=== PATIENT | female | born 1950 | race Caucasian/White ===

== ENCOUNTER 2016-07-21 22:10 | Inpatient (IN) | payer MEDICARE, SELFPAY ==
[~2016-07-21 22:10] MED LIST: FLEXERIL10 MG PO; IBUPROFEN200 MG PO
[2016-07-21 23:09] LABS: BASO % 0.2 % (0-2); EOS % 3.5 % (0-7); EOSINOPHIL ABSOLUTE COUNT 0.2 tho/cmm (0.0-0.7); HCT-HEMATOCRIT 27.7 % (34.0-49.0); HGB-HEMOGLOBIN 9.1 gm/dl (12.0-15.5); IMMATURE GRANULOCYTES ABSOLUTE 0.03 tho/cmm (0-0.03); IMMATURE GRANULOCYTES PERCENT 0.5 % (0-0.3); LYMPH % 36.3 % (20-45); LYMPH ABSOLUTE COUNT 2.4 tho/cmm (0.8-4.5); MCH (MEAN CORPUSCULAR HGB) 28.7 pg (28.0-32.0); MCHC MEAN CORPUSCULAR HGB CONC 32.9 % (32.0-36.0); MCV (MEAN CELL VOLUME) 87.4 fl (82.0-96.0); MEAN PLATELET VOLUME 9.9 cmc (9.4-12.4); MONO % 5.7 % (0-12); MONOCYTE ABSOLUTE COUNT 0.4 tho/cmm (0.0-1.2); NEUTROPHIL ABSOLUTE COUNT 3.6 tho/cmm (1.6-8.0); NEUTROPHIL-AUTOMATED 3.6 tho/cmm (1.6-8.0); NEUTROPHILS % 53.8 % (40-80); PLATELET COUNT 225 tho/cmm (150-450); RED BLOOD COUNT 3.17 mil/cmm (4.00-5.20); RED CELL DISTRIBUTION WIDTH 13.6 % (12.4-16.4); WHITE BLOOD COUNT 6.6 tho/cmm (4.0-10.0)
[2016-07-21 23:22] LABS: INR 0.9 INR (0.9-1.1); PROTHROMBIN TIME 10.1 SECONDS (9.0-13.6)
[2016-07-21 23:31] LABS: ALB/GLOB RATIO 1.2 (0.8-2.0); ALBUMIN 3.6 g/dl (3.5-5.0); ALKALINE PHOSPHATASE 49 U/L (33-138); ALT/SGPT 29 U/L (12-78); ANION GAP 15 mmol/L (0-20); AST/SGOT 22 U/L (10-40); BILIRUBIN,TOTAL 0.2 mg/dl (0-1.5); BLOOD UREA NITROGEN 26 mg/dl (6-24); CALCIUM 8.6 mg/dl (8.5-10.5); CARBON DIOXIDE-VENOUS 23 mmol/L (22-32); CHLORIDE 108 mmol/l (96-110); CREATININE 0.84 mg/dl (0.50-1.10); GLUCOSE 101 mg/dL (70-110); POTASSIUM 3.7 mmol/L (3.7-5.1); SODIUM 142 mmol/L (135-145); eGFR VALUE FOR BLACK 83 mL/Min
[2016-07-22 00:38] LABS: URINE APPEARANCE HAZY; URINE BILIRUBIN NEGATIVE (NEG); URINE BLOOD LARGE (NEG); URINE COLOR YELLOW; URINE GLUCOSE (UA) NEGATIVE (NEG); URINE KETONE NEGATIVE (NEG); URINE LEUKOCYTE ESTERASE POSITIVE (NEG); URINE NITRITE NEGATIVE (NEG); URINE PROTEIN NEGATIVE (NEG); URINE SPECIFIC GRAVITY 1.025 (1.003-1.030)
[2016-07-22 00:50] LABS: URINE BACTERIA 1+; URINE MUCUS 1+; URINE RBC 0-3 /[HPF] (0-5)
[2016-07-22 05:45] LABS: BASO % 0.2 % (0-2); EOS % 2.4 % (0-7); EOSINOPHIL ABSOLUTE COUNT 0.1 tho/cmm (0.0-0.7); HCT-HEMATOCRIT 24.5 % (34.0-49.0); HGB-HEMOGLOBIN 8.1 gm/dl (12.0-15.5); IMMATURE GRANULOCYTES ABSOLUTE 0.01 tho/cmm (0-0.03); IMMATURE GRANULOCYTES PERCENT 0.2 % (0-0.3); LYMPH % 29.4 % (20-45); LYMPH ABSOLUTE COUNT 1.5 tho/cmm (0.8-4.5); MCH (MEAN CORPUSCULAR HGB) 28.9 pg (28.0-32.0); MCHC MEAN CORPUSCULAR HGB CONC 33.1 % (32.0-36.0); MCV (MEAN CELL VOLUME) 87.5 fl (82.0-96.0); MEAN PLATELET VOLUME 9.3 cmc (9.4-12.4); MONO % 5.6 % (0-12); MONOCYTE ABSOLUTE COUNT 0.3 tho/cmm (0.0-1.2); NEUTROPHIL ABSOLUTE COUNT 3.1 tho/cmm (1.6-8.0); NEUTROPHIL-AUTOMATED 3.1 tho/cmm (1.6-8.0); NEUTROPHILS % 62.2 % (40-80); PLATELET COUNT 174 tho/cmm (150-450); RED CELL DISTRIBUTION WIDTH 13.6 % (12.4-16.4)
[2016-07-22 05:55] LABS: ANION GAP 12 mmol/L (0-20); BLOOD UREA NITROGEN 19 mg/dl (6-24); CALCIUM 7.5 mg/dl (8.5-10.5); CARBON DIOXIDE-VENOUS 23 mmol/L (22-32); CHLORIDE 111 mmol/l (96-110); CREATININE 0.72 mg/dl (0.50-1.10); GLUCOSE 109 mg/dL (70-110); MAGNESIUM 1.9 mg/dl (1.8-2.6); POTASSIUM 3.6 mmol/L (3.7-5.1); SODIUM 142 mmol/L (135-145); eGFR VALUE FOR BLACK >90 mL/Min
[2016-07-22 11:01] LABS: HCT-HEMATOCRIT 29.2 % (34.0-49.0); HGB-HEMOGLOBIN 9.8 gm/dl (12.0-15.5); MCV (MEAN CELL VOLUME) 86.6 fl (82.0-96.0); RED CELL DISTRIBUTION WIDTH 13.4 % (12.4-16.4)
[2016-07-22 19:11] LABS: HCT-HEMATOCRIT 30.7 % (34.0-49.0); HGB-HEMOGLOBIN 10.4 gm/dl (12.0-15.5); MCV (MEAN CELL VOLUME) 86.2 fl (82.0-96.0); RED CELL DISTRIBUTION WIDTH 13.3 % (12.4-16.4)
[2016-07-23 03:38] LABS: HCT-HEMATOCRIT 28.2 % (34.0-49.0); HGB-HEMOGLOBIN 9.5 gm/dl (12.0-15.5); MCV (MEAN CELL VOLUME) 86.5 fl (82.0-96.0); RED CELL DISTRIBUTION WIDTH 13.4 % (12.4-16.4)
[2016-07-23 11:25] LABS: HCT-HEMATOCRIT 30.1 % (34.0-49.0); MCV (MEAN CELL VOLUME) 87.2 fl (82.0-96.0); RED CELL DISTRIBUTION WIDTH 13.8 % (12.4-16.4)
[2016-07-24 05:01] LABS: BASO % 0.1 % (0-2); EOS % 1.2 % (0-7); EOSINOPHIL ABSOLUTE COUNT 0.1 tho/cmm (0.0-0.7); HCT-HEMATOCRIT 29.1 % (34.0-49.0); HGB-HEMOGLOBIN 9.7 gm/dl (12.0-15.5); IMMATURE GRANULOCYTES ABSOLUTE 0.02 tho/cmm (0-0.03); IMMATURE GRANULOCYTES PERCENT 0.3 % (0-0.3); LYMPH % 27.9 % (20-45); LYMPH ABSOLUTE COUNT 1.9 tho/cmm (0.8-4.5); MCHC MEAN CORPUSCULAR HGB CONC 33.3 % (32.0-36.0); MCV (MEAN CELL VOLUME) 87.1 fl (82.0-96.0); MEAN PLATELET VOLUME 9.5 cmc (9.4-12.4); MONO % 7.8 % (0-12); MONOCYTE ABSOLUTE COUNT 0.5 tho/cmm (0.0-1.2); NEUTROPHIL ABSOLUTE COUNT 4.2 tho/cmm (1.6-8.0); NEUTROPHIL-AUTOMATED 4.2 tho/cmm (1.6-8.0); NEUTROPHILS % 62.7 % (40-80); PLATELET COUNT 174 tho/cmm (150-450); RED BLOOD COUNT 3.34 mil/cmm (4.00-5.20); RED CELL DISTRIBUTION WIDTH 13.7 % (12.4-16.4); WHITE BLOOD COUNT 6.7 tho/cmm (4.0-10.0)
[2016-07-24 05:21] LABS: ANION GAP 14 mmol/L (0-20); BLOOD UREA NITROGEN 6 mg/dl (6-24); CARBON DIOXIDE-VENOUS 24 mmol/L (22-32); CHLORIDE 111 mmol/l (96-110); CREATININE 0.81 mg/dl (0.50-1.10); GLUCOSE 105 mg/dL (70-110); POTASSIUM 3.3 mmol/L (3.7-5.1); SODIUM 146 mmol/L (135-145); eGFR VALUE FOR BLACK 87 mL/Min
[2016-07-25 05:59] LABS: BASO % 0.5 % (0-2); EOS % 4.2 % (0-7); EOSINOPHIL ABSOLUTE COUNT 0.3 tho/cmm (0.0-0.7); HCT-HEMATOCRIT 32.9 % (34.0-49.0); HGB-HEMOGLOBIN 10.9 gm/dl (12.0-15.5); IMMATURE GRANULOCYTES ABSOLUTE 0.02 tho/cmm (0-0.03); IMMATURE GRANULOCYTES PERCENT 0.3 % (0-0.3); LYMPH % 25.6 % (20-45); LYMPH ABSOLUTE COUNT 1.6 tho/cmm (0.8-4.5); MCH (MEAN CORPUSCULAR HGB) 28.8 pg (28.0-32.0); MCHC MEAN CORPUSCULAR HGB CONC 33.1 % (32.0-36.0); MEAN PLATELET VOLUME 9.8 cmc (9.4-12.4); MONO % 11.1 % (0-12); MONOCYTE ABSOLUTE COUNT 0.7 tho/cmm (0.0-1.2); NEUTROPHIL ABSOLUTE COUNT 3.7 tho/cmm (1.6-8.0); NEUTROPHIL-AUTOMATED 3.7 tho/cmm (1.6-8.0); NEUTROPHILS % 58.3 % (40-80); PLATELET COUNT 205 tho/cmm (150-450); RED BLOOD COUNT 3.78 mil/cmm (4.00-5.20); RED CELL DISTRIBUTION WIDTH 13.5 % (12.4-16.4); WHITE BLOOD COUNT 6.4 tho/cmm (4.0-10.0)
[2016-07-25 06:04] LABS: ANION GAP 12 mmol/L (0-20); BLOOD UREA NITROGEN 9 mg/dl (6-24); CALCIUM 8.5 mg/dl (8.5-10.5); CARBON DIOXIDE-VENOUS 28 mmol/L (22-32); CHLORIDE 108 mmol/l (96-110); CREATININE 0.83 mg/dl (0.50-1.10); GLUCOSE 107 mg/dL (70-110); POTASSIUM 3.5 mmol/L (3.7-5.1); SODIUM 144 mmol/L (135-145); eGFR VALUE FOR BLACK 85 mL/Min
--- NOTE | 2016-07-25 11:50 | NUR ---
PREOP REPORT CALLED TO RADHA CHANEY AT 1127.
[2016-07-25] MEDS ORDERED: NORCO 5-325 TA1 EACH PO (15:59)
[2016-07-25] MEDS ORDERED: ZOFRAN4 M2 PO (15:59)
[2016-07-25] MEDS ORDERED: [UNRECOGNIZED DRUG - OTHER] TOP (16:01)
== END 2016-07-25 19:10 | DRG 348 ==
LOC: EDMED 22:10 → EMR2 07-22 02:38 → PCUA 07-22 02:45 → PACU 07-25 13:00 → PCUA 07-25 14:32
PROVIDERS: Emergency Medicine; Internal Medicine; Specialist; ADMIT Hospitalist
PROC: 0DJD8ZZ Inspection of Lower Intestinal Tract, Via Natural or Artificial Opening Endoscopic (ICD-10-PCS; 2016-07-24)
PROC: 06BY3ZC Excision of Hemorrhoidal Plexus, Percutaneous Approach (ICD-10-PCS; principal; 2016-07-25)
DX: K64.5 Perianal venous thrombosis (principal); D62 Acute posthemorrhagic anemia; K64.8 Other hemorrhoids; K21.9 Gastro-esophageal reflux disease without esophagitis; E78.5 Hyperlipidemia, unspecified; E87.6 Hypokalemia
CPT/HCPCS: C9113; G0500; J1170; J2270; J2405; J3480; J7030; P9016; Q9967